=== PATIENT | female | born 2000 | race Caucasian/White ===

== ENCOUNTER 2022-04-12 00:02 | Emergency (ER) | payer BC ==
[~2022-04-12] VITALS: Ht 175.3 cm; Wt 70.3 kg
[2022-04-12 00:11] VITALS: BP 134/82
--- NOTE | 2022-04-12 00:18 | NUR ---
PT TO LOBBY
--- NOTE | 2022-04-12 02:39 | NUR ---
Dimas wu in [facility] - 04/12/22 at 0241 by [facility] PATIENT LEFT WITHOUT BEING SEEN BY . NO FURTHER CARE PROVIDED FOR PATIENT.
--- NOTE | 2022-04-12 02:41 | NUR ---
Patient being evaluated by physician at bedside.
[2022-04-12] MEDS ORDERED: NACL 0.9% 1,000 ML IV ONE (02:45)
[2022-04-12] MEDS ORDERED: cefTRIAXone 1,000 MG VIAL ONE (03:04)
[2022-04-12 03:24] LABS: BASOPHILS % (AUTO) 0.2 % (0.0-2.0); EOSINOPHILS # (AUTO) 0.1 K/uL (0-0.4); EOSINOPHILS % (AUTO) 0.7 % (0.0-4.0); HEMATOCRIT 42.7 % (36-48); LYMPHOCYTES # (AUTO) 2.1 K/uL (2.5-16.5); LYMPHOCYTES % (AUTO) 17.4 % (20.5-51.1); MEAN CORPUSCULAR HEMOGLOBIN 27 pg (27-31); MEAN CORPUSCULAR HGB CONC 33 g/dL (33-37); MEAN CORPUSCULAR VOLUME 83.4 fL (80-94); MONOCYTES % (AUTO) 8.3 % (1.7-9.3); NEUTROPHILS % (AUTO) 73.4 % (42.2-75.2); PLATELET COUNT (AUTO) 279 K/uL (140-450); RED BLOOD CELL COUNT(AUTO) 5.12 MIL/uL (4.20-5.40); RED CELL DISTRIBUTION WIDTH 13.9 % (11.6-13.7); WHITE BLOOD COUNT (AUTO) 12.2 K/uL (4.5-11.0)
[2022-04-12 03:29] VITALS: BP 120/74
[2022-04-12 03:41] LABS: ANION GAP 11.2 (8-16); CARBON DIOXIDE 29.7 mmol/L (21-32); CREATININE 0.8 mg/dL (0.6-1.3); POTASSIUM 3.9 mmol/L (3.5-5.1); TOTAL BILIRUBIN 0.5 mg/dL (0.0-1.0)
[2022-04-12 03:50] LABS: APPEARANCE,URINE CLEAR (CLEAR); BILIRUBIN,URINE NEGATIVE (NEGATIVE); BLOOD, URINE 3+ (NEGATIVE); LEUKOCYTE ESTERASE ,URINE 2+ (NEGATIVE); NITRITE, URINE POSITIVE (NEGATIVE); UGLUCOSE NEGATIVE (NEGATIVE)
[2022-04-12 04:02] LABS: COLOR,URINE DARK YELLOW (YELLOW)
[2022-04-12 04:03] LABS: WBC,URINE 20-60 /HPF (0-5)
[2022-04-12] MEDS ORDERED: NITR100C7 PO (04:07)
== END 2022-04-12 04:15 | disposition home or self-care (01) ==
LOC: MED 00:02
DX: N39.0 Urinary tract infection, site not specified (principal)
CPT/HCPCS: 36415; 80053; 81001; 81025; 83605; 85025; 87040; 87086; 96365; 99284; J0696; J7030